=== PATIENT | male | born 2000 | race Caucasian/White ===

== ENCOUNTER 2023-10-18 15:45 | Outpatient (CLI) | payer BC ==
--- NOTE | 2023-10-18 19:52 | XRAY Report ---
PROCEDURE: Chest 2V INDICATIONS: PERSISTENT COUGH TECHNIQUE: 2 views of the chest were acquired. COMPARISON: None. FINDINGS: Surgical changes and devices: None. Lungs and pleura: No pleural effusions or pneumothorax. Lungs are clear. Mediastinum: Mediastinal contours appear normal. Heart size is normal. Bones and chest wall: No suspicious bony lesions. Overlying soft tissues appear unremarkable. IMPRESSION: No acute cardiopulmonary process. Reviewed by: Raul Spaulding MD on 10/18/2023 7:51 PM PDT Approved by: Raul Spaulding MD on 10/18/2023 7:51 PM PDT Station ID: [id number]
== END 2023-10-18 15:46 | disposition home or self-care (01) ==
LOC: DI 15:45
PROVIDERS: ATTEND Nurse Practitioner Family
DX: R05.3 Chronic cough (principal)